=== PATIENT | female | born 1965 | race Caucasian/White ===

== ENCOUNTER → 2022-12-29 | Outpatient (CLI) | payer BC ==
[2022-12-29 10:54] LABS: Appearance, Urine Clear (Clear); Bilirubin, Urine Neg (Neg); Blood, Urine 1+ (Neg); Glucose Qualitative, Urine Neg (Neg); Ketones, Urine Neg (Neg); Leukocyte Esterase, Urine Neg (Neg); Nitrite, Urine Neg (Neg); Protein, Urine Neg (Neg); Specific Gravity, Urine 1.015 (1.003-1.022); Urobilinogen, Urine NORM (Normal); pH, Urine 6.5 (5.0-8.0)
[2022-12-29 11:07] LABS: Color, Urine Pale Yellow (P-Yellow)
[2022-12-29 11:08] LABS: Bacteria Rare /hpf; Squamous Epithelial Cells Few /hpf (Few); White Blood Cells, Urine Not Seen /hpf (0-5)
[2022-12-29 14:12] LABS: Calcium, Urine 18.2 mg/dL (< 17.5); Calcium, Urine Calculation 473.2 mg/24hrs (42.0-353.0)
== END | disposition home or self-care (01) ==
LOC: LAB SHORT 06:00 → LAB FUT 12-20 07:50
PROVIDERS: Internal Medicine
DX: E21.0 Primary hyperparathyroidism (principal); I10 Essential (primary) hypertension; R11.0 Nausea; R73.9 Hyperglycemia, unspecified; R51.9 Headache, unspecified; R82.90 Unspecified abnormal findings in urine; Z79.899 Other long term (current) drug therapy
CPT/HCPCS: 81001; 81050; 82340

== ENCOUNTER 2023-06-24 20:36 | Emergency (ER) | payer BC ==
[~2023-06-24] VITALS: Ht 162.6 cm; Wt 61.2 kg
[2023-06-24 20:51] VITALS: BP 149/102
== END 2023-06-25 00:24 | disposition home or self-care (01) ==
LOC: ER 20:36
DX: S42.451A Displaced fracture of lateral condyle of right humerus, initial encounter for closed fracture (principal); S42.461A Displaced fracture of medial condyle of right humerus, initial encounter for closed fracture; W18.30XA Fall on same level, unspecified, initial encounter; Z88.5 Allergy status to narcotic agent; I10 Essential (primary) hypertension
CPT/HCPCS: 29105; 73080; 73200; 76377; 99284-25

== ENCOUNTER → 2023-12-20 | Outpatient (CLI) | payer BC ==
[2023-12-21 11:32] LABS: Creatinine Urine 49.7 mg/dL (27.00-270.00)
[2023-12-28 12:42] LABS: ALDOSTERONE, URINE 14.6 ug/d (1.2-28.1)
== END ==
LOC: LAB SHORT 07:00 → LAB 07:00
PROVIDERS: Internal Medicine Endocrinology, Diabetes & Metabolism
DX: E26.9 Hyperaldosteronism, unspecified (principal)
CPT/HCPCS: 81050; 82088; 82570; 84300